=== PATIENT | female | born 1965 | race Two or more races ===

== ENCOUNTER 2018-02-08 20:51 | Emergency (ER) | payer OTHER ==
[~2018-02-08] VITALS: Ht 165.1 cm; Wt 81.6 kg
--- NOTE | 2018-02-08 21:24 | Emergency Room Report ---
History of Present Illness General Chief Complaint: To Be Triaged Source: Patient Present Illness HPI Patient fell down 3 steps. She hit her left lower leg. She heard a crack. She 's having pain in her leg mostly above her ankle. The pain is severe at this time. There is swelling. Denies any numbness. There is no loss of consciousness. She denies any back pain at this time or other extremity pain. There is no knee pain. Pain rated 10/10, constant, sharp and aching, radiates towards knee. No hip or back pain. No break in skin. No headache. No spine tenderness. No dysuria. 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 Reviewed Nursing Documentation: PMH: Agreed; PSxH: Agreed Review of Systems All Other Systems: negative except mentioned in HPI Physical Exam Vital Signs Date Time Temp Pulse Resp B/P (MAP) Pulse Ox O2 Delivery O2 Flow Rate FiO2 02/08/18 21:55 98.3 79 16 126/68 95 Room Air 98.2 Sp02 EP Interpretation: reviewed, normal General Appearance: well appearing, no apparent distress Head: normocephalic, atraumatic Eyes: bilateral eye normal inspection, bilateral eye PERRL ENT: hearing grossly normal, normal voice, moist mucus membranes Neck: full range of motion, supple Respiratory: chest non-tender, lungs clear, no respiratory distress, speaking full sentences Cardiovascular #1: regular rate, rhythm Cardiovascular #2: 2+ dorsalis pedis (L) Gastrointestinal: normal inspection Genitourinary: no CVA tenderness Musculoskeletal: digits/nails normal, pelvis stable, decreased range of mation - ankle, ligaments stable. Pain prox fibula and ankle. Knee not tender and ligaments stable. Neurologic: alert, oriented x3, motor strength/tone normal, DTRs symmetric, sensory intact, speech normal, other - peroneal nerve intact Psychiatric: mood/affect normal, anxious Skin: no rash Medical Decision Making Diagnostic Impression: Primary Impression: Maisonneuve fracture Qualified Codes: S82.865A - Nondisplaced Maisonneuve's fracture of left leg, initial encounter for closed fracture ER Course Patient post fall with L lower leg pain. DDX; contusion, sprain, fx amongst others. Treatment with analgesia. Xrays indicated. Xrays with prox fibula and posterior tibial fx. Splint ordered. Improved with analgesia. Splint applied by RN, position good with normal neurovasc as checked by me. Discussed need for orthopedic follow up. Patient stable for outpatient observation and treatment. Other X-Ray Diagnostic Results Other X-Ray Diagnostic Results #1: X-Ray ordered: L tib fib # of Views/Limited Vs Complete: 4 View Indication: Pain Interpretation: no dislocation, no soft tissue swelling, other - fx prox fibula Impression: Other Electronically Signed by: Milad Shah MD Other X-Ray Diagnostic Results #2: X-Ray ordered: L ankel # of Views/Limited Vs Complete: 3 View Indication: Pain Interpretation: no dislocation, no soft tissue swelling, other - posteior tibial fx Impression: Other Electronically Signed by: Milad Shah MD Last Vital Signs Date Time Temp Pulse Resp B/P (MAP) Pulse Ox O2 Delivery O2 Flow Rate FiO2 02/09/18 00:32 98.5 82 18 126/68 98 Room Air 98.2 Status: improved Disposition: HOME, SELF-CARE Condition: Improved Scripts Tramadol Hcl* (ULTRAM*) 50 Mg Tablet 50 MG ORAL Q6H PRN for For Pain, #16 TAB 0 Refills Prov: Milad Shah M.D. 02/08/18 Ibuprofen* (MOTRIN*) 600 Mg Tablet 600 MG ORAL Q6H PRN for For Pain, #20 TAB Prov: Milad Shah M.D. 02/08/18 Milad Shah M.D. Feb 08, 2018 21:24
[2018-02-08] MEDS ORDERED: oxyCODONE HCL/Acetaminophen 5/325mg ORAL ONE (21:30)
--- NOTE | 2018-02-08 22:09 | Diagnostic Imaging Report ---
EXAM: XR Left Ankle Complete, 3 or More Views CLINICAL HISTORY: TRAUMA TECHNIQUE: Frontal, lateral and oblique views of the left ankle. COMPARISON: No relevant prior studies available. FINDINGS: Bones/joints: Nondisplaced posterior malleolus fracture which reaches the articular surface. No dislocation. Soft tissues: Soft tissue swelling. IMPRESSION: 1. Posterior malleolus fracture. 2. Soft tissue swelling.
--- NOTE | 2018-02-08 22:11 | Diagnostic Imaging Report ---
EXAM: XR Left Tibia and Fibula, 2 Views CLINICAL HISTORY: TRAUMA TECHNIQUE: Frontal and lateral views of the left tibia and fibula. COMPARISON: No relevant prior studies available. FINDINGS: Bones/joints: There is a fracture of the proximal fibula with 3 mm offset. There is a fracture of the posterior malleolus which reaches the articular surface. No dislocation. Soft tissues: There is soft tissue swelling. No radiopaque foreign body. IMPRESSION: Fractures involving the proximal fibula and posterior malleolus.
[2018-02-08] MEDS ORDERED: TRAMADOL HCL50 MG ORAL (23:13)
[2018-02-08] MEDS ORDERED: IBUPROFEN600 MG ORAL (23:13)
[2018-02-09 00:32] VITALS: BP 126/68
== END 2018-02-09 00:32 | disposition home or self-care (01) ==
LOC: EMR 21:19
DX: S82.865A Nondisplaced Maisonneuve's fracture of left leg, initial encounter for closed fracture (principal); X58.XXXA Exposure to other specified factors, initial encounter; Y92.9 Unspecified place or not applicable
CPT/HCPCS: 29505; 99284